=== PATIENT | female | born 1950 | race African-American/Black ===

== ENCOUNTER 2016-09-15 13:16 | Inpatient (IN) | payer OTHER ==
[~2016-09-15] VITALS: Ht 154.9 cm; Wt 74.5 kg
[~2016-09-15 13:16] MED LIST: ALDACTONE50 MG PO; BUMEX2 MG PO; COREG6.25 MG PO; CRESTOR10 MG PO; LOVAZA1 G PO; OMEPRAZOLE20 M1 PO; PLAVIX75 MG PO; STOOL SOFTENER100 M1 PO; VALIUM10 MG PO; ZYRTEC10 MG PO
--- NOTE | 2016-09-15 15:00 | NUR ---
RECIEVED PT INTO HOSPICE CARE. FAMILY AT BEDSIDE. ALL QUESTIONS ANSWERED. INTITIAL ASSESSMENT COMPLETE, PLEASE SEE FLOW SHEETS FOR DETAILS. PERSONAL ITEMS NOTED AROUND ROOM, BEARS AND CARDS. ALL PERSONAL BELONGINGS SENT WITH FAMILY. AWAITING FLOOR ROOM. WILL IMPLEMENT ORDERS AND MONITOR PT.
[2016-09-15 15:15] VITALS: BP 77/51; Ht 154.9 cm; Wt 74.5 kg
--- NOTE | 2016-09-15 17:00 | NUR ---
PT RESTING COMFORTABLE, NO SIGNS OF ANXIETY OR DISTRESS. WILL CONTINUE TO MONITOR.
--- NOTE | 2016-09-15 17:09 | NUR ---
CALLED AND GAVE REPORT TO NINI MOREL. WILL AWAIT ROOM TO BE CLEANED AND TRANSFER PT.
--- NOTE | 2016-09-15 17:45 | NUR ---
PT SAFELY TRANSFERED TO ROOM 2240, LEFT IN CARE OF NINI MOREL.
--- NOTE | 2016-09-15 17:58 | NUR ---
TO ROOM 2240 VIA BED FROM ICU.PT IS NON RESPONSIVE TO VERBAL AND TACTILE STIMULI.02 AT 3.5 LITERS PER TRACH COLLAR.PEG IS CLAMPED.SKIN WITHOUT BREAK DOWN.IST STEP AIR MATRESS ON BED FOR COMFORT.DOOR OPEN TO [facility]
[2016-09-15 19:00] VITALS: BP 72/44
--- NOTE | 2016-09-15 21:00 | NUR ---
PT OPENS EYES AT TIMES. NON-VERBAL. INCONTINENT OF LARGE LOOSE STOOL. CHANGED PADS, CLEANED PT AND PERFORMED SAUMEL CARE. REPOSITIONED AND TURNED PT. TRACH COLLAR IN PLACE WITH 3.5L OXYGEN. WILL CONTINUE TO MONITOR.
--- NOTE | 2016-09-16 08:00 | NUR ---
ASSESSMEN TPER FLOW SHEET.PT WITHOUT DISTRESS.SHE IS HAVING A PAUSE ANY WHERE FROM 30-60 SECONDS BETWEEN BREATHS AT TIMES.SHE IS WITHOUT SIGNS OF PAIN.DOOR OPEN TO MONITOR
[2016-09-16 08:18] VITALS: BP 95/58
--- NOTE | 2016-09-16 11:00 | NUR ---
REMAINS WITHOUT DISTRESS.MONITOR
[2016-09-16 11:37] VITALS: BP 114/77
--- NOTE | 2016-09-16 12:30 | NUR ---
SUCTIONED SMALL AMOUTNTS OF YELLOW/GREEN DRAINAGE FROM MOUTH
--- NOTE | 2016-09-16 15:09 | NUR ---
FAMILY IN ROOM.PT REMAINS WITHOUT SIGNS OF PAIN AND DISTRESS.
[2016-09-16 16:52] VITALS: BP 95/60
--- NOTE | 2016-09-16 17:27 | NUR ---
REMAINS WITHOUT SIGNS OF DISTRESS,RESP NON LABORED.CONT PLAN OF CARE
--- NOTE | 2016-09-16 19:50 | NUR ---
PATIENT SLEEPING IN SEMI-FOWLERS POSITION. NO VISIBLE SIGNS OF DISTRESS.
[2016-09-16 20:00] VITALS: BP 110/66
[2016-09-17 08:09] VITALS: BP 125/76
[2016-09-17 12:49] VITALS: BP 133/75
--- NOTE | 2016-09-17 14:40 | NUR ---
DAUGHTER HERE TO VISIT,SHE IS UPSET ABOUT MOM TUBE FEEDS NOT BEING GOING.SHE IS WANTING A MEETING WITH .PAGE TO 'S OFFICE.
[2016-09-17 15:53] VITALS: BP 125/74
--- NOTE | 2016-09-17 16:41 | NUR ---
SPOKE WITH PT SISTER, PASSWORD CONFIRMED.PT UPDATE GIVEN.
--- NOTE | 2016-09-17 17:03 | NUR ---
SPOKE WITH DAUGHTER RE.. FEEDINGS AND PT UPDATE. PASSWORD CONFIRMED
--- NOTE | 2016-09-17 17:25 | NUR ---
SPOKE WITH SISTER VALENTINO MICHELE,PASSWORD CONFIRMED.SISTER WAS ASKING ABOUT URINE OUT PUT AND IV FLUIDS.UPDATE GIVEN
[2016-09-17 19:00] VITALS: BP 121/69
--- NOTE | 2016-09-17 19:13 | NUR ---
PATIENT SLEEPING IN SEMI-FOWLERS POSITION. NO VISIBLE SIGNS OF DISTRESS NOTED.
== END 2016-09-18 02:05 | DRG 951 ==
LOC: D.ICU 13:16 → D.MS 13:16 → D.ICU 15:16 → D.MS 17:46
PROVIDERS: ADMIT Legal Medicine
DX: Z51.5 Encounter for palliative care (principal)